=== PATIENT | female | born 1990 | race Two or more races ===

== ENCOUNTER 2023-06-12 02:17 | Observation (INO) | payer MEDICAID, OTHER ==
[~2023-06-12] VITALS: Ht 162.6 cm; Wt 77.1 kg
[2023-06-12] MEDS ORDERED: LACTATED RINGER'S 1,000 ML IV ONE (03:00)
[2023-06-12] MEDS ORDERED: LACTATED RINGER'S 1,000 ML IV SCH (03:00)
[2023-06-12] MEDS ORDERED: AZITHROMYCIN 250 MG TAB PO ONE (03:15)
[2023-06-12] MEDS ORDERED: AMPICILLIN SOD 2GM INJ 2 GM in SODIUM CHL 0.9% 100 ML IV ONE (03:15)
[2023-06-12] MEDS ORDERED: MAGNESIUM SULFATE 100 ML IV ONE (03:15)
[2023-06-12] MEDS ORDERED: MAGNESIUM SULFATE 40MG/ML 1,000 ML IV SCH (03:15)
[2023-06-12] MEDS ORDERED: BETAMETHASONE ACET (30mg/5ml) 5ml Vial 6mg/ml IM SCH ×2 (03:15→10:00)
[2023-06-12] MEDS: TERBUTALINE SULFATE 1 MG/ML 1ML VIAL SC SCH ×2 (03:18→03:50)
[2023-06-12 03:20] LABS: Amphetamine Screen, Urine Neg (NEGATIVE); Barbiturate Scree,Urine Neg (NEGATIVE); Benzodiazephine Screen, Urine Neg (NEGATIVE); Cocaine Screen, Urine Neg (NEGATIVE); Opiate Scree,Urine Neg (NEGATIVE)
[2023-06-12 03:21] LABS: Phencyclidine Screen, Urine Neg (NEGATIVE)
[2023-06-12 03:27] LABS: Urine Bacteria FEW /hpf (None Seen); Urine Blood 3+ /uL (Negative); Urine Clarity HAZY (Clear); Urine Color Colorless (Yellow); Urine Mucus FEW (None Seen); Urine Protein, UAD 2+ (Negative); Urine Specific Gravity 1.009 (1.001-1.035); Urine Urobilinogen Normal (Negative); Urine WBC 13 /hpf (0 - 5)
[2023-06-12 03:29] LABS: Fern Testing Positive
[2023-06-12] MEDS ORDERED: AMPICILLIN SOD 1 GM VL ONE (03:38)
[2023-06-12 07:28] LABS: Cannabinoid Screen, Urine Neg (NEGATIVE)
== END 2023-06-12 05:33 | disposition short-term general hospital (02) ==
LOC: LDRP 02:17 → UNDOADMOB 02:17 → LDRP 02:55 → OBSVTOIN 02:55 → INTOOBSV 02:55 → UNDODISIN 05:33
PROVIDERS: ADMIT Obstetrics & Gynecology; ATTEND Obstetrics & Gynecology
DX: O42.913 Preterm premature rupture of membranes, unspecified as to length of time between rupture and onset of labor, third trimester (principal); O62.9 Abnormality of forces of labor, unspecified; Z3A.32 32 weeks gestation of pregnancy; Z79.899 Other long term (current) drug therapy
CPT/HCPCS: 59025; 80307; 81001; 81002; 84112; 94760; 96365; 96366; 96372; G0378; J0290; J0702; J3105; J3475; Q0114; 96360; 96361; J7060